=== PATIENT | female | born 1970 | race Caucasian/White ===

== ENCOUNTER 2016-06-14 05:05 | Day surgery (SDC) ==
[2016-06-12 11:34] LABS: MANUAL DIFF NEEDED? NO
[2016-06-12 11:42] LABS: BASO% 0.3 % (0.0-0.8); EOS# 0.09 X1000 (0.0-0.7); HEMATOCRIT 42.5 % (37.0-47.0); IMM GRAN# 0.01 X1000 (0.0-0.04); IMM GRAN% 0.1 % (0.0-0.5); LYMPH# 1.94 X1000 (1.2-3.4); LYMPH% 22.1 % (20.5-51.1); MCH 30.4 PG (27-31); MCHC 32.9 g/dL (33-37); MCV 92.2 FL (81-99); MONO# 0.48 X1000 (0.11-0.59); MONO% 5.5 % (1.7-9.3); MPV 9.7 FL (7.4-10.4); PLT 277 X1000 (130-400); RBC 4.61 XMIL (4.2-5.4)
--- NOTE | 2016-06-13 16:35 | HISTORY AND PHYSICAL ---
ADMITTING DIAGNOSIS: Recurrent cervical dysplasia. SUMMARY: Nadeen Cohen is a 45-year-old 2, para 2, who has had recurrent abnormal Pap smears. Her Pap smears have showed low-grade changes. She underwent a LEEP procedure in October 2015 however she has continued to have mild dysplasia with positive HPV since. After discussing options with the patient, she is being admitted for removal of her cervix. She has previously had a laparoscopic supracervical hysterectomy. PAST MEDICAL HISTORY: Patient has had 2 pregnancies both ending in sections. She has had a benign breast biopsy. She underwent a laparoscopic supracervical hysterectomy in 2011 due to dysfunctional uterine bleeding, dysmenorrhea and menorrhagia. CURRENT MEDICATIONS: None. ALLERGIES: Penicillin. PHYSICAL EXAMINATION: WEIGHT: Her weight is 170, blood pressure is 120/80. CARDIOVASCULAR: Regular rate and rhythm without murmurs, rubs, or gallops. PULMONARY: Clear. BREASTS: No masses. ABDOMEN: Nontender. PELVIC EXAMINATION: Shows normal external genitalia. There is a small residual cervix. There are no pelvic masses. EXTREMITIES: No clubbing, edema or cyanosis. IMPRESSION: Recurrent cervical dysplasia. PLAN: We have had a long talk regarding treatment options. We discussed expected management versus repeating the LEEP procedure versus a laser procedure versus removal of the cervical stump. She is most comfortable to the trachelectomy. She is therefore being admitted to the hospital as outpatient and we will proceed performed the trachelectomy. Risks of surgery including pain, bleeding, infection, anesthesia complications, and bladder injury have been discussed. All questions have been answered. Patient freely agrees to this procedure.
[2016-06-14] MEDS ORDERED: LR 1,000 ML ONE ×3 (05:10→08:09)
[2016-06-14] MEDS ORDERED: FENTANYL ONE (06:13)
[2016-06-14] MEDS ORDERED: DIPRIVAN 1% ONE (06:14)
[2016-06-14] MEDS ORDERED: EPHEDRINE ONE (06:14)
[2016-06-14] MEDS ORDERED: VERSED ONE (06:14)
[2016-06-14] MEDS ORDERED: CLAVE SECONDARY SET 11953 ONE (06:41)
[2016-06-14] MEDS ORDERED: SENSORCAINE 0.25%/EPI 1:200,000 ONE (06:41)
[2016-06-14] MEDS ORDERED: CLINDAMYCIN 900 MG/NS 50 ML ONE (06:41)
[2016-06-14] MEDS ORDERED: PEPCID ONE (06:46)
[2016-06-14] MEDS ORDERED: LEVSIN-SL SL PRN (07:27)
[2016-06-14] MEDS ORDERED: PHENERGAN IM PRN (07:27)
[2016-06-14] MEDS ORDERED: AMBIEN PO PRN (07:27)
[2016-06-14] MEDS ORDERED: NORCO-10 PO PRN (07:27)
[2016-06-14] MEDS ORDERED: NORCO-5 PO PRN (07:27)
[2016-06-14] MEDS ORDERED: ZOFRAN ODT PO PRN (07:27)
[2016-06-14] MEDS ORDERED: ZOFRAN IV PRN (07:27)
[2016-06-14] MEDS ORDERED: DEMEROL IM PRN (07:27)
[2016-06-14] MEDS ORDERED: DULCOLAX PR PRN (07:27)
[2016-06-14] MEDS ORDERED: LR 1,000 ML IV SCH (07:30)
--- NOTE | 2016-06-14 07:43 | OPERATIVE NOTE ---
PROCEDURE DATE: 06/14/2016 SURGEON: Kevin Olivo MD CROWNING INSPECTOR: Maxim Munoz MD ANESTHESIA: General endotracheal. OPERATION PERFORMED: Trachelectomy. PREOPERATIVE DIAGNOSIS: Recurrent cervical dysplasia. POSTOPERATIVE DIAGNOSIS: Recurrent cervical dysplasia. FINDINGS: Small residual cervical stump. DESCRIPTION OF PROCEDURE: Patient was taken back to the operating room and after general endotracheal anesthesia, was placed in the dorsal lithotomy position. Vagina and perineum were prepped and draped in the usual fashion. The bladder was emptied using a straight catheter. Weighted speculum placed in the posterior vaginal vault. Cervix was grasped with a tenaculum. The anterior reflection of the vaginal cuff was infiltrated with Xylocaine and epinephrine solution. Anterior colporrhaphy was performed. This was taken down to the endopelvic fascia and then we made the incision posteriorly. Malaika clamps were then placed across the distal portion of the cervical stump. The uterosacral ligaments bilaterally were clamped, incised, and ligated remainder of the tissue was then clamped incised and ligated. The cervical stump thus removed. The vaginal mucosa was then reapproximated using interrupted Vicryl sutures. Blood loss was approximately 10 mL. There were no complications. Patient was extubated and went to the recovery room in stable condition.
[2016-06-14] MEDS ORDERED: ZOFRAN ONE ×2 (07:59→16:02)
[2016-06-14] MEDS: PHENERGAN ONE ×2 (08:17→08:22)
[2016-06-14] MEDS ORDERED: PERIDEX MT SCH (09:00)
[2016-06-14] MEDS ORDERED: MYLICON PO SCH (13:00)
[2016-06-14] MEDS ORDERED: TORADOL IV SCH (13:29)
[2016-06-14 13:39] VITALS: BP 131/75
[2016-06-14] MEDS ORDERED: XYLOCAINE-MPF 2% ONE (16:02)
[2016-06-14] MEDS ORDERED: DECADRON ONE (16:02)
[2016-06-14] MEDS ORDERED: TORADOL ONE (16:02)
[2016-06-14] MEDS ORDERED: COLACE PO SCH (21:00)
--- NOTE | 2016-06-14 21:07 | DISCHARGE SUMMARY ---
ADMISSION DATE: 06/14/2016 DISCHARGE DATE: 06/14/2016 ADMITTING DIAGNOSIS: Persistent cervical dysplasia. PRINCIPAL DIAGNOSIS: Persistent cervical dysplasia. PRINCIPAL PROCEDURE: Trachelectomy. SUMMARY: Nadeen Cohen is a 45-year-old who had a laparoscopic supracervical hysterectomy in the past. She now has recurrent and persistent cervical dysplasia. After discussing options with the patient she was admitted to the hospital as an outpatient and underwent a trachelectomy without complications this morning. This afternoon she is doing well. She is having scant bleeding. She is voiding without difficulty. Her pain is being controlled with p.o. agents. We will let her go home today and we will see her back in the office in a week. She will call sooner if there are any problems. She will watch for fevers, bleeding, signs of infection or difficulty urinating. I will send her home with prescriptions for [place] and Motrin for pain.
== END 2016-06-14 14:15 | disposition home or self-care (01) ==
LOC: P.OR 05:05 → P.WC 05:06 → P.OR 14:15
PROVIDERS: ATTEND Obstetrics & Gynecology
DX: N87.9 Dysplasia of cervix uteri, unspecified (principal); A63.0 Anogenital (venereal) warts
CPT/HCPCS: 36415; 85025; 86850; 86900; 86901; 94799; J1100; J1885; J2250; J2405; J2550; J3010; J7120; S0028; S0077